=== PATIENT | female | born 1985 | race Caucasian/White ===

== ENCOUNTER 2018-03-20 00:04 | Inpatient (IN) | payer BC ==
[~2018-03-20] VITALS: Ht 162.6 cm; Wt 95.2 kg
[~2018-03-20 00:04] MED LIST: FLNCV PO; MTR600X PO
[2018-03-25 08:33] VITALS: Ht 162.6 cm; Wt 95.2 kg
--- NOTE | 2018-03-25 10:56 | History and Physical ---
History & Physical Date of Service Mar 25, 2018. Complaint Induction History of Present Illness Source: patient here for post dates induction. No problems. 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 Past Medical History None Past Surgical History None Social History Smoking Status: Former Smoker Allergies Coded Allergies: NO KNOWN DRUG ALLERGIES (Verified Allergy, Unknown, none, 03/25/18) Home Medications Scheduled Multivitamins (Flintstones Chewable *), 1 TAB PO QAM Review of Systems Constitutional: No fever, No chills, No sweats, No problem reported Eyes: No worsening of vision, No eye pain, No problem reported ENT: No problem reported Respiratory: No cough, No sputum, No wheezing, No problem reported Cardiovascular: No chest pain, No orthopnea, No edema, No palpitations, No problem reported Abdomen: No problem reported Musculoskeletal: No problem reported Genitourinary - Female: + , No problem reported Neurologic: No problem reported Psychiatric: No problem reported Endocrine: No problem reported Hematologic / Lymphatic: No problem reported Integumentary: No problem reported Allergic / Immunologic: No problem reported Physical Exam Cervix 1/60/-2 Monitoring External Monitor: Category1 Assessment and Plan (1) Post dates Plan for pitocin induction of labor
[2018-03-25] MEDS ORDERED: LACTATED RINGER'S 1000ML 500 ML IV PRN (11:26)
[2018-03-25] MEDS ORDERED: OXYTOCIN 30 UNITS/500ML NSS IV PRN ×2 (11:30→20:45)
[2018-03-25 11:51] LABS: HEMATOCRIT 37.7 % (37-47); HEMOGLOBIN 12.6 g/dL (12.0-16.0); MEAN CELL VOLUME 87.1 fL (80-100); MEAN CORPUSCULAR HEMOGLOBIN 29.1 pg (25-34); MEAN CORPUSCULAR HGB CONC 33.4 g/dl (32-36); MEAN PLATELET VOLUME 11.5 fL (7.4-10.4); PLATELET COUNT 143 K/uL (130-400); RED CELL DISTRIBUTION WIDTH CV 14.3 % (11.5-14.5); RED CELL DISTRIBUTION WIDTH SD 45.2 fL (36.4-46.3); WHITE BLOOD COUNT 8.81 K/uL (4.8-10.8)
[2018-03-25] MEDS: LACTATED RINGER'S 1000ML 1,000 ML IV SCH ×2 (11:52→19:38)
--- NOTE | 2018-03-25 20:40 | Procedure Note ---
Procedure Note Date of Service Mar 25, 2018. Procedure Note viable female Spontaneous delivery of intact placenta No lacerations needing repair No complications
[2018-03-25] MEDS ORDERED: ACETAMINOPHEN 325 MG TAB PO PRN (20:45)
[2018-03-25] MEDS ORDERED: SUPERCREAM 0.870 % 15GM JAR EXT PRN (20:45)
[2018-03-25] MEDS ORDERED: LANOLIN OINT EXT PRN (20:45)
[2018-03-25] MEDS ORDERED: OXYCODONE/ACETAMINOPHEN 5-325 TAB PO PRN (20:45)
[2018-03-25] MEDS ORDERED: BENZOCAINE 20% AER SPR 82.5 GM CAN EXT PRN (20:45)
[2018-03-25 23:10] VITALS: BP 130/79; PULSE 85; TEMP 36.3
[2018-03-25] MEDS: IBUPROFEN 600 MG TAB PO PRN (23:12)
[2018-03-26 03:25] VITALS: BP 103/63; PULSE 63; TEMP 36.6
[2018-03-26 07:09] LABS: HEMOGLOBIN 12.4 g/dL (12.0-16.0)
[2018-03-26] MEDS: DOCUSATE SODIUM 100 MG CAP PO SCH ×3 (07:56→19:32)
[2018-03-26] MEDS: IBUPROFEN 600 MG TAB PO PRN (07:58)
[2018-03-26 08:15] VITALS: BP 130/81; PULSE 67; TEMP 36.6
--- NOTE | 2018-03-26 08:25 | Progress Note ---
Subjective Mar 26, 2018. Subjective conversation w/ patient Ambulation: ambulating normally Voiding: no voiding problems Passing Gas: Yes Diet Tolerance: Regular Diet Lochia: Small Feeding Type: Breast Feeding Review of Systems Constitutional: + fever Objective Vital Signs Date Time Temp Pulse Resp B/P (MAP) Pulse Ox O2 Delivery O2 Flow Rate FiO2 03/26/18 03:25 36.6 63 18 103/63 (76) Room Air 03/25/18 23:10 Room Air 03/25/18 23:10 36.3 85 18 130/79 (96) Room Air Physical Exam General Appearance: WELL-APPEARING Abdomen: non tender Fundus: Firm, Non-Tender Extremities: no pedal edema, no calf tenderness Laboratory Results Last 24 Hours Test 03/25/18 11:37 03/26/18 06:52 White Blood Count 8.81 K/uL Red Blood Count 4.33 M/uL Hemoglobin 12.6 g/dL 12.4 g/dL Hematocrit 37.7 % 37.0 % Mean Corpuscular Volume 87.1 fL Mean Corpuscular Hemoglobin 29.1 pg Mean Corpuscular Hemoglobin Concent 33.4 g/dl RDW Standard Deviation 45.2 fL RDW Coefficient of Variation 14.3 % Platelet Count 143 K/uL Mean Platelet Volume 11.5 fL Assessment and Plan Post- Day#: 1
[2018-03-26 12:15] VITALS: BP 113/74; PULSE 61; TEMP 36.5
[2018-03-26 16:10] VITALS: BP 108/72; PULSE 60; TEMP 36.4
[2018-03-26 20:30] VITALS: BP 114/76; PULSE 79; TEMP 36.4; O2SAT 98
[2018-03-27 00:20] VITALS: BP 120/74; PULSE 67; TEMP 36.7; O2SAT 96
[2018-03-27] MEDS: DOCUSATE SODIUM 100 MG CAP PO SCH (07:48)
[2018-03-27 07:52] VITALS: BP 113/76; PULSE 66; TEMP 36.4
--- NOTE | 2018-03-27 08:33 | Progress Note ---
Subjective Mar 27, 2018. Subjective conversation w/ patient Ambulation: ambulating normally Voiding: no voiding problems Passing Gas: Yes Diet Tolerance: Regular Diet Lochia: Small Feeding Type: Breast Feeding Review of Systems Constitutional: + fever Objective Vital Signs Date Time Temp Pulse Resp B/P (MAP) Pulse Ox O2 Delivery O2 Flow Rate FiO2 03/27/18 07:52 36.4 66 20 113/76 (88) 03/27/18 00:20 36.7 67 16 120/74 (89) 96 Room Air 03/26/18 20:30 Room Air 03/26/18 20:30 36.4 79 16 114/76 (89) 98 Room Air 03/26/18 16:10 36.4 60 20 108/72 (84) 03/26/18 12:15 36.5 61 20 113/74 (87) Physical Exam General Appearance: WELL-APPEARING Abdomen: non tender Fundus: Firm, Non-Tender Extremities: no pedal edema, no calf tenderness Assessment and Plan Post- Day#: 2 Continue Routine Care: zoloft 50 mg x 60 one tablet daily
--- NOTE | 2018-03-27 08:35 | Discharge Instructions ---
Discharge Instructions Date of Service Mar 27, 2018. Admission Reason for Admission: Induction Discharge Discharge Diagnosis / Problem: term Discharge Goals Goal(s): Routine recovery after delivery Activity Recommendations Activity Limitations: as noted below ACTIVITY RECOMMENDATIONS: * Gradual return to full activity over the next 2-3 weeks. * No lifting - nothing heavier than baby over the next 2-3 weeks. * Do not engage in vigorous exercise, sexual activity or sports until cleared by your physician. * Do not drive or operate any motorized equipment until cleared by your physician. * You may shower/bathe daily. BREAST CARE: If you are not breast feeding: * Wear a supportive bra 24 hours a day for one to two weeks. * Avoid stimulating your breasts and nipples as much as possible during the first few weeks after delivery. * When taking a shower, have the warm water hit your back, not breasts. * When your breasts feel full, apply ice packs. Usually three to four times a day helps ease the discomfort. * Take a mild pain medication (Tylenol/Motrin) when you are uncomfortable. If breast feeding: * Use breast milk to lubricate nipples. Lansinoh cream may be used for sore nipples. You do not need to remove cream prior to breast feeding. If using a different brand of cream, check the label for directions regarding removal of cream prior to nursing. * Wear a supportive bra. * If having problems with breasts or breast feeding, call a specification consultant or your health care provider. EPISIOTOMY CARE: After delivery, if you have an episiotomy (stitches), the following steps will ease discomfort and aid healing. * For the first 24 hours after delivery, place ice packs next to your episiotomy to help reduce swelling. * After the first 24 hour-period, sitz baths, either portable or in the tub, are suggested. A shower with a shower arm sprayed over the episiotomy may be comforting. * Christina care should be done after each voiding and bowel movement. Squirt warm water from a plastic bottle over the perineum (region of the body between the anus and urinary opening) and pat dry. * Use Dermoplast to ease discomfort. Shake container. [place] directly over the episiotomy. * Place a Tucks on a clean sanitary pad next to your episiotomy. OVER THE COUNTER MEDICATION: * For discomfort or pain, you may use Acetaminophen (Tylenol), Ibuprofen (Advil ), or Naproxen (Aleve) following the package directions. * For constipation you may use Colace following the package directions. SPECIAL CARE INSTRUCTIONS: When you are discharged from the hospital, it is important for you to follow the instructions listed below: * During the first week at home, you should be able to care for yourself and your baby. In addition, the usual light household activities are encouraged. * Limit your activities to the way you feel. Do not try to clean the house or move furniture. Be sensible. * If you actively engage in sports and have done so up until the time of your delivery, you may resume these activities as soon as you feel able. This may take up to one month or even longer. Use good judgment. * Continue to take your vitamins for at least six weeks after the of your baby. * Your diet need not be limited unless you were on a special diet before your delivery. Breast-feeding mothers need around 2500 calories per day and at least 64-80 ounces of fluid per day (8 to 10 glasses). * You should eat foods from the four major food groups. Crash diets or fad diets are to be avoided. Eating lean meats, fresh fruits and vegetables, low-fat dairy products, high fiber foods and a regular exercise program, will help you get back to your pre- weight without putting your health at risk. * Constipation is sometimes a problem after delivery. Take a mild laxative as needed. If breast feeding, Milk of Magnesia is acceptable to use. You may use a suppository or Fleets enema if no episiotomy. * A daily shower or tub bath is suggested. Be sure to thoroughly and gently dry the perineum. * A bloody vaginal discharge will usually continue until around four weeks post . A small amount of bleeding may continue for as long as six weeks. Vaginal discharge changes from the bright red bleeding after delivery to pink then brownish and finally yellowish-pink before becoming white and disappearing. * Bleeding may increase with activity. Your first period may come in 4-8 weeks. If you are breast feeding, your period may be delayed even longer. * [place] (sex) can begin whenever both you and your partner feel comfortable and do not have any form of genital infection. It is recommended that you wait until after your return appointment and discuss with your physician. If you have questions, please talk to your health care practitioner. A condom should be used to prevent infection and . * Foreplay, gentle intercourse and lubrication is very important the first several times to prevent pain. A water-based lubricant such as K-Y jelly or Astroglide may be used. * Tampons may be used six weeks after delivery. * Douching should be avoided for 6 weeks after delivery. * If you have RH negative blood and your baby is RH positive, you will receive RHOGAM by injection prior to discharge. The nurse will give you a card to keep with you that has the date and place that you received RHOGAM after delivery. * During your care, you had a Rubella screen done to check for the presence of rubella antibodies in your blood. If your test was negative, you will receive a Rubella vaccine prior to discharge. This vaccine may cause a fever, soreness at the injection site and flu-like symptoms. If these symptoms persist, notify your health care practitioner. is not advised for three months after a Rubella vaccine. There is a higher chance of having a baby with defects if conceived within three months of getting the vaccine. * If you were discharged 24 hours from delivery or before 48 hours: Visiting nurses will come to your home 48 hours after discharge to assess you and your baby. The visiting nurse will meet with you while you are in the hospital to arrange a time and get directions to your home. * Verbalizes understanding of car seat law as reviewed with patient nursing. * Car Seat hand-out given and reviewed with patient by nursing. * Shaken baby information reviewed with patient by nursing. Call you doctor if: * Heavy bleeding (saturating several pads an hour) or passing clots the size of your fist. * A fever >101 degrees F (38.3 degrees C) on two occasions four hours apart and/or chills. * Unusual pain in the pelvic or vaginal areas. * "Baby Blues" lasting longer than two weeks. If you have any questions or concerns, call your health care practitioner at . FOLLOW-UP VISIT: * Please call the office at to schedule a 6 week examination. It is important you keep this appointment. * It is important for you to make arrangements for either yearly or twice yearly check-ups thereafter. . Current Hospital Diet ACTIVITY RECOMMENDATIONS: * Gradual return to full activity over the next 2-3 weeks. * No lifting - nothing heavier than baby over the next 2-3 weeks. * Do not engage in vigorous exercise, sexual activity or sports until cleared by your physician. * Do not drive or operate any motorized equipment until cleared by your physician. * You may shower/bathe daily. BREAST CARE: If you are not breast feeding: * Wear a supportive bra 24 hours a day for one to two weeks. * Avoid stimulating your breasts and nipples as much as possible during the first few weeks after delivery. * When taking a shower, have the warm water hit your back, not breasts. * When your breasts feel full, apply ice packs. Usually three to four times a day helps ease the discomfort. * Take a mild pain medication (Tylenol/Motrin) when you are uncomfortable. If breast feeding: * Use breast milk to lubricate nipples. Lansinoh cream may be used for sore nipples. You do not need to remove cream prior to breast feeding. If using a different brand of cream, check the label for directions regarding removal of cream prior to nursing. * Wear a supportive bra. * If having problems with breasts or breast feeding, call a specification consultant or your health care provider. EPISIOTOMY CARE: After delivery, if you have an episiotomy (stitches), the following steps will ease discomfort and aid healing. * For the first 24 hours after delivery, place ice packs next to your episiotomy to help reduce swelling. * After the first 24 hour-period, sitz baths, either portable or in the tub, are suggested. A shower with a shower arm sprayed over the episiotomy may be comforting. * Christina care should be done after each voiding and bowel movement. Squirt warm water from a plastic bottle over the perineum (region of the body between the anus and urinary opening) and pat dry. * Use Dermoplast to ease discomfort. Shake container. [place] directly over the episiotomy. * Place a Tucks on a clean sanitary pad next to your episiotomy. OVER THE COUNTER MEDICATION: * For discomfort or pain, you may use Acetaminophen (Tylenol), Ibuprofen (Advil ), or Naproxen (Aleve) following the package directions. * For constipation you may use Colace following the package directions. SPECIAL CARE INSTRUCTIONS: When you are discharged from the hospital, it is important for you to follow the instructions listed below: * During the first week at home, you should be able to care for yourself and your baby. In addition, the usual light household activities are encouraged. * Limit your activities to the way you feel. Do not try to clean the house or move furniture. Be sensible. * If you actively engage in sports and have done so up until the time of your delivery, you may resume these activities as soon as you feel able. This may take up to one month or even longer. Use good judgment. * Continue to take your vitamins for at least six weeks after the of your baby. * Your diet need not be limited unless you were on a special diet before your delivery. Breast-feeding mothers need around 2500 calories per day and at least 64-80 ounces of fluid per day (8 to 10 glasses). * You should eat foods from the four major food groups. Crash diets or fad diets are to be avoided. Eating lean meats, fresh fruits and vegetables, low-fat dairy products, high fiber foods and a regular exercise program, will help you get back to your pre- weight without putting your health at risk. * Constipation is sometimes a problem after delivery. Take a mild laxative as needed. If breast feeding, Milk of Magnesia is acceptable to use. You may use a suppository or Fleets enema if no episiotomy. * A daily shower or tub bath is suggested. Be sure to thoroughly and gently dry the perineum. * A bloody vaginal discharge will usually continue until around four weeks post . A small amount of bleeding may continue for as long as six weeks. Vaginal discharge changes from the bright red bleeding after delivery to pink then brownish and finally yellowish-pink before becoming white and disappearing. * Bleeding may increase with activity. Your first period may come in 4-8 weeks. If you are breast feeding, your period may be delayed even longer. * [place] (sex) can begin whenever both you and your partner feel comfortable and do not have any form of genital infection. It is recommended that you wait until after your return appointment and discuss with your physician. If you have questions, please talk to your health care practitioner. A condom should be used to prevent infection and . * Foreplay, gentle intercourse and lubrication is very important the first several times to prevent pain. A water-based lubricant such as K-Y jelly or Astroglide may be used. * Tampons may be used six weeks after delivery. * Douching should be avoided for 6 weeks after delivery. * If you have RH negative blood and your baby is RH positive, you will receive RHOGAM by injection prior to discharge. The nurse will give you a card to keep with you that has the date and place that you received RHOGAM after delivery. * During your care, you had a Rubella screen done to check for the presence of rubella antibodies in your blood. If your test was negative, you will receive a Rubella vaccine prior to discharge. This vaccine may cause a fever, soreness at the injection site and flu-like symptoms. If these symptoms persist, notify your health care practitioner. is not advised for three months after a Rubella vaccine. There is a higher chance of having a baby with defects if conceived within three months of getting the vaccine. * If you were discharged 24 hours from delivery or before 48 hours: Visiting nurses will come to your home 48 hours after discharge to assess you and your baby. The visiting nurse will meet with you while you are in the hospital to arrange a time and get directions to your home. * Verbalizes understanding of car seat law as reviewed with patient nursing. * Car Seat hand-out given and reviewed with patient by nursing. * Shaken baby information reviewed with patient by nursing. Call you doctor if: * Heavy bleeding (saturating several pads an hour) or passing clots the size of your fist. * A fever >101 degrees F (38.3 degrees C) on two occasions four hours apart and/or chills. * Unusual pain in the pelvic or vaginal areas. * "Baby Blues" lasting longer than two weeks. If you have any questions or concerns, call your health care practitioner at . FOLLOW-UP VISIT: * Please call the office at to schedule a 6 week examination. It is important you keep this appointment. * It is important for you to make arrangements for either yearly or twice yearly check-ups thereafter. Patient's current hospital diet: Regular Diet Discharge Diet Recommended Diet: Regular Diet Pending Studies Studies pending at discharge: no Medical Emergencies . Who to Call and When: Medical Emergencies: If at any time you feel your situation is an emergency, please call 911 immediately. . Non-Emergent Contact Non-Emergency issues call your: Retail Service Technician Call Non-Emergent contact if: temperature is above 100.5 . . "Provider Documentation" section prepared by Neville Matamoros. .
[2018-03-27 10:06] VITALS: BP_DIAS 76; PULSE 66; TEMP 36.4
== END 2018-03-27 11:21 | disposition home or self-care (01) | DRG 775 ==
LOC: C.LD 03-25 07:50 → C.OBG 03-25 23:15
PROVIDERS: ADMIT Obstetrics & Gynecology; ATTEND Obstetrics & Gynecology
PROC: 4A1HXCZ Monitoring of Products of Conception, Cardiac Rate, External Approach (ICD-10-PCS; principal; 2018-03-25)
PROC: 3E033VJ Introduction of Other Hormone into Peripheral Vein, Percutaneous Approach (ICD-10-PCS; principal; 2018-03-25)
PROC: 10E0XZZ Delivery of Products of Conception, External Approach (ICD-10-PCS; principal; 2018-03-25)
DX: O48.0 Post-term pregnancy (principal); Z3A.40 40 weeks gestation of pregnancy; Z37.0 Single live birth; Z87.891 Personal history of nicotine dependence

== ENCOUNTER 2024-08-15 10:23 | Inpatient (IN) ==
--- NOTE | 2024-08-15 10:41 | Emergency Department Note ---
Impression & Plan Wedge compression fracture of T12 vertebra, Fall ED Provider Note NAME: RASHMI LIEBERMAN AGE: 38 SEX: F : 1985 ARRIVES VIA: Walk-In INFORMANT: Patient ED PROVIDER(S): Higinio Rodriguez DO CHIEF COMPLAINT: Back pain HPI: Patient is a 38-year-old female who presents to the ER following a fall. Per who is present at bedside and provides additional history patient slipped on the ice and fell into her butt. She notes she did not hit her head. No head or neck pain. Pain is focal in her lower lumbar spine. No radiation into the legs. No weakness or numbness. No chest pain or shortness of breath. No other exacerbating or remitting factors. No blood thinners. ADDITIONAL HISTORY OBTAINED: Per HPI Chronic Medical/Social Conditions Affecting Care: Per HPI PAST MEDICAL HISTORY:See Below PAST SURGICAL HISTORY:See Below FAMILY HISTORY:See Below SOCIAL HISTORY:See Below HOME MEDICATIONS:See Below ALLERGIES:See Below VITALS:See Below PHYSICAL EXAMINATION: GENERAL: Sitting up in bed, alert, well appearing, well nourished, no distress, non-toxic EYE EXAM: normal conjunctiva. OROPHARYNX: no exudate, no erythema, lips, buccal mucosa, and tongue normal and mucous membranes are moist NECK: supple, no nuchal rigidity, no adenopathy, non-tender LUNGS: Clear to auscultation. Normal chest wall mechanics HEART: no murmurs, S1 normal and S2 normal ABDOMEN: abdomen soft, non-tender, normo-active bowel sounds, no masses, no rebound or guarding. BACK: Back is symmetrical on inspection and there is no deformity, midline tenderness in the lower lumbar region UPPER EXTREMITIES: upper extremities are grossly normal. LOWER EXTREMITIES: Flexion and extension of the hips, knees, ankles, and EHL 5/5 bilaterally. Gross sensation is intact. DPs are 2/4 bilateral. [Patellar and Achilles reflexes are 2/4 bilateral] NEURO EXAM: Normal sensorium, cranial nerves II-XII grossly intact, normal speech, no gross weakness of arms, no gross weakness of legs. MEDICAL DECISION MAKING: Patient is a 38-year-old female who presents ER for the above-stated complaint. IV was established and blood work was obtained. Labs show no significant leukocytosis or anemia. BMP with LFTs bilirubin was unremarkable. X-ray of the thoracic and CT of the lumbar spine shows fracture at T12 with 4 mm of retropulsion. She currently neurologically intact. Significant abdominal pain with any movement. She was given IV morphine x 2. Discussed with orthospine she will need to TLSO brace. Discussed case with the hospitalist for further evaluation management treatment. Consults/Care Managements Discussions: Per MDM Triage Nursing notes reviewed. Limited review of prior medical records performed Vital Signs: reviewed and remarkable for no significant abnormalities Differential diagnosis: Musculoskeletal, disc herniation, fracture, metastatic disease, cord compression, discitis, sciatica, cauda equina, infection, aortic disease, renal colic, gastrointestinal, as well as other pathologies. ER treatment provided: See below Diagnostics interpreted by me include EKG and cardiac monitoring as listed below: -Cardiac Monitoring: An order was placed for continuous cardiac monitoring. The monitor shows a rate of 70 with sinus rhythm. -ECG: None -Laboratory studies:Interpreted by me as stated above in MDM and shown below. Imaging studies: Xrays: As interpreted by me: X-rays of the thoracic spine showed T12 fracture CTs show: CT of the lumbar spine shows a T12 fracture with retropulsion of 4 mm Procedures: None Critical Care: None Past Med/Surg History Problem List (Updated 08/15/24 @ 13:50 by Higinio Rodriguez DO) Fall (Acute) Wedge compression fracture of T12 vertebra (Acute) Medical History (Updated 08/15/24 @ 13:50 by Higinio Rodriguez DO) No pertinent past medical history Surgical History (Updated 08/15/24 @ 12:17 by Libby Gonzalez PA-C) No pertinent past surgical history Social History (Updated 08/15/24 @ 12:18 by Libby Gonzalez PA-C) Smoking Status: Current every day smoker Tobacco Type: Cigarettes Hx Alcohol Use: No Hx Substance Use: No Current Living Situation: Family Feels Safe at Home: Yes Allergies Allergies Allergy/AdvReac Type Severity Reaction Status Date / Time No Known Drug Allergies Allergy Unknown none Verified 03/25/18 08:32 Home Meds Home Medications Medication Instructions Recorded Confirmed Multi Vitamin 1 tab PO QAM ##0 10/22/09 08/15/24 Results & Data (ED) Vital Signs Vital Signs - 24 hr 08/15/24 10:31 08/15/24 11:33 08/15/24 11:38 Temperature 36.3 C L Temperature Source Temporal Artery Scan Pulse Rate 68 72 70 Pulse Rate from SpO2 Sensor Respiratory Rate 20 Respiratory Effort / Characteristics Non-Labored Spontaneous Respiratory Depth Normal Respiratory Pattern Regular Blood Pressure 110/72 Blood Pressure Mean 84 Pulse Oximetry 100 97 Oxygen Delivery Method Room Air Room Air Sepsis Recent Fever Within 48 Hours No Sepsis New/Unexplained Change in Mental Status N/A Sepsis Action Taken by Nursing No Action Required 08/15/24 11:42 08/15/24 11:57 08/15/24 12:00 Temperature Temperature Source Pulse Rate 67 72 Pulse Rate from SpO2 Sensor 68 72 Respiratory Rate 16 12 Respiratory Effort / Characteristics Respiratory Depth Respiratory Pattern Blood Pressure 106/75 Blood Pressure Mean 86 Pulse Oximetry 97 97 Oxygen Delivery Method Sepsis Recent Fever Within 48 Hours Sepsis New/Unexplained Change in Mental Status Sepsis Action Taken by Nursing 08/15/24 12:24 08/15/24 12:42 Temperature Temperature Source Pulse Rate 71 76 Pulse Rate from SpO2 Sensor 71 72 Respiratory Rate 14 16 Respiratory Effort / Characteristics Respiratory Depth Respiratory Pattern Blood Pressure Blood Pressure Mean Pulse Oximetry 100 97 Oxygen Delivery Method Sepsis Recent Fever Within 48 Hours Sepsis New/Unexplained Change in Mental Status Sepsis Action Taken by Nursing Laboratory Data 08/15/24 10:45 08/15/24 10:45 Lab Results 08/15/24 Range/Units 10:45 WBC 8.16 (4.8-10.8) K/ul RBC 4.98 (4.20-5.40) M/uL Hgb 14.9 (12.0-16.0) g/dl Hct 43.1 (37.0-47.0) % MCV 86.5 (80.0-100.0) fL MCH 29.9 (25.0-34.0) pg MCHC 34.6 (32.0-36.0) g/dL RDW Std Deviation 38.3 (36.4-46.3) fL RDW Coeff of Shi 12.0 (11.5-14.5) % Plt Count 270 (130-400) K/uL MPV 10.3 (9.4-12.4) fL Immature Gran % (Auto) 1.0 % Neut % (Auto) 64.2 % Lymph % (Auto) 26.1 % [place] % (Auto) 6.7 % Eos % (Auto) 1.5 % Baso % (Auto) 0.5 % Neut # (Auto) 5.24 (1.40-6.50) K/uL Lymph # (Auto) 2.13 (1.20-3.40) K/uL [place] # (Auto) 0.55 (0.11-0.59) K/uL Eos # (Auto) 0.12 (0.00-0.50) K/uL Baso # (Auto) 0.04 (0.00-0.20) K/uL Immature Gran # (Auto) 0.08 (0.01-0.20) K/uL Sodium 135 L (136-145) mmol/L Potassium 3.7 (3.5-5.1) mmol/L Chloride 101 (98-107) mmol/L Carbon Dioxide 23 (21-32) mmol/L Anion Gap 11 (3-11) BUN 11 (6-23) mg/dl Creatinine 0.72 (0.6-1.2) mg/dl Est Cr Clr Drug Dosing Not Reportable eGFR 110.37 BUN/Creatinine Ratio 15.3 (10-20) Glucose 130 H (70-99(Fasting)) mg/dl Calcium 9.7 (8.6-10.3) mg/dl Total Bilirubin 0.5 (0.2-1.0) mg/dl AST 35 (13-39) U/L ALT 46 (7-52) U/L Alkaline Phosphatase 46 (34-104) U/L Total Protein 8.1 (6.0-8.3) gm/dl Albumin 4.9 (3.4-5.0) gm/dl Globulin 3.2 (2.5-4.0) gm/dl Albumin/Globulin Ratio 1.5 (0.9-2) Administered Medications Acetaminophen (Ofirmev) 1,000 mg in 100 mls @ 400 mls/hr IV Q8H ESTER Stop: 08/18/24 12:14 Last Infusion: 08/15/24 13:33 Dose: Infused Documented By: Admin: 08/15/24 12:15 Dose: 400 mls/hr Documented By: BELINDA Lidocaine (Lidocaine 5% 1 Patch) 1 patch TD QAM ESTER Stop: 09/14/24 12:14 Last Admin: 08/15/24 12:16 Dose: 1 patch Documented By: BELINDA Discontinued Medications Morphine Sulfate (Morphine Sulfate 4 Mg/Ml 1 Ml Carp\Vial) 4 mg IV NOW STA Stop: 08/15/24 10:39 Last Admin: 08/15/24 10:58 Dose: 4 mg Documented By: GALOK Morphine Sulfate (Morphine Sulfate 4 Mg/Ml 1 Ml Carp\Vial) 4 mg IV NOW STA Stop: 08/15/24 11:36 Last Admin: 08/15/24 11:48 Dose: 4 mg Documented By: BELINDA Ondansetron HCl (Ondansetron Inj 2 Mg/Ml 2 Ml Vial) 4 mg IV NOW STA Stop: 08/15/24 10:39 Last Admin: 08/15/24 10:58 Dose: 4 mg Documented By: BELINDA Imaging Data Radiologist's Impression: Lumbar Spine CT 08/15/24 10:38 CT lumbar spine wo con CLINICAL HISTORY: lower back pain TECHNIQUE: Multidetector row helical CT of the lumbar spine was performed without administration of intravenous contrast. Coronal and sagittal reformations were obtained. Automated dose lowering techniques and/or adjustment according to patient size were utilized for this exam. CT DOSE: 1251.86 mGy.cm Comparison: None available at the time of this dictation. FINDINGS: For counting purposes, the last complete intervertebral disc space is considered L5-S1. There is an acute fracture of the superior endplate of T12 with approximately 50% loss of height and 4 mm of retropulsion. Vertebral body heights and disk spaces are well maintained. Vertebral body alignment is within normal limits. Surrounding soft tissues are unremarkable. IMPRESSION: Acute anterior wedge fracture of the superior endplate of T12 with 4 mm of retropulsion. ACT 112: Negative or not required by law. Electronically signed by: Farshad Wright M.D. 08/15/2024 11:25 AM Thoracic Spine X-Ray 08/15/24 10:38 XR thoracic spine 3V routine CLINICAL HISTORY: back pain TECHNIQUE: 3 views of the thoracic spine were obtained. Comparison: None available at the time of this dictation. FINDINGS: Acute appearing anterior wedge fracture of T12. Vertebral body heights and disc spaces are well maintained. Alignment appears unremarkable. Prevertebral soft tissues are within normal limits. IMPRESSION: Compression fracture of T12 is better seen on CT lumbar spine. ACT 112: Negative or not required by law. Electronically signed by: Farshad Wright M.D. 08/15/2024 11:32 AM Discharge Plan Visit Data Chief Complaint: Back Injury/Pain Stated Complaint: FELL ON ICE, LANDED ON BACK/BACK PAIN ED Provider: Higinio Rodriguez Discharge Problem: Wedge compression fracture of T12 vertebra, Fall Forms Stand Alone Forms: [employer] Prescriptions Prescriptions: No Action Multi Vitamin 1 TAB tablet 1 tab PO QAM Qty: 0 Referrals Referrals: Parul Davenport PA-C [Primary Care Provider] - Discharge Problem: Wedge compression fracture of T12 vertebra Qualifiers: Encounter type: initial encounter Fracture type: closed Qualified Code(s): S 22.080A - Wedge compression fracture of T11-T12 vertebra, initial encounter for closed fracture Fall Qualifiers: Encounter type: initial encounter Qualified Code(s): W19.XXXA - Unspecified fall, initial encounter
[2024-08-15 10:57] LABS: Basophils # (auto) 0.04 K/uL (0.00-0.20); Basophils % (auto) 0.5 %; Eosinophils # (auto) 0.12 K/uL (0.00-0.50); Eosinophils % (auto) 1.5 %; Hematocrit (blood only) 43.1 % (37.0-47.0); Hemoglobin 14.9 g/dl (12.0-16.0); Immature Granulocytes # (auto) 0.08 K/uL (0.01-0.20); Lymphocytes # (auto) 2.13 K/uL (1.20-3.40); Lymphocytes % (auto) 26.1 %; Mean Corpuscular Hemoglobin 29.9 pg (25.0-34.0); Mean Corpuscular Hgb Conc 34.6 g/dL (32.0-36.0); Mean Corpuscular Volume 86.5 fL (80.0-100.0); Mean Platelet Volume 10.3 fL (9.4-12.4); Monocytes # (auto) 0.55 K/uL (0.11-0.59); Monocytes % (auto) 6.7 %; Neutrophils # (auto) 5.24 K/uL (1.40-6.50); Neutrophils % (auto) 64.2 %; Platelet Count 270 K/uL (130-400); RDW Standard Deviation 38.3 fL (36.4-46.3); Red Blood Count 4.98 M/uL (4.20-5.40); White Blood Count 8.16 K/ul (4.8-10.8)
[2024-08-15] MEDS: ONDANSETRON INJ 2 MG/ML 2 ML VIAL IV STA (10:58)
[2024-08-15] MEDS: MoRPHine SULFATE 4 MG/ML 1 ML CARP\\VIAL IV STA ×2 (10:58→11:48)
[2024-08-15 11:13] LABS: Alanine Aminotransferase 46 U/L (7-52); Albumin Globulin Ratio 1.5 (0.9-2); Albumin Level 4.9 gm/dl (3.4-5.0); Alkaline Phosphatase 46 U/L (34-104); Anion Gap 11 (3-11); Aspartate Aminotransferase 35 U/L (13-39); BUN Creatinine Ratio 15.3 (10-20); Bilirubin,Total 0.5 mg/dl (0.2-1.0); Blood Urea Nitrogen 11 mg/dl (6-23); Calcium 9.7 mg/dl (8.6-10.3); Carbon Dioxide 23 mmol/L (21-32); Chloride 101 mmol/L (98-107); Globulin 3.2 gm/dl (2.5-4.0); Glucose 130 mg/dl (70-99(Fasting)); Potassium 3.7 mmol/L (3.5-5.1); Sodium 135 mmol/L (136-145); Total Protein 8.1 gm/dl (6.0-8.3)
--- NOTE | 2024-08-15 11:26 | CT Scan Report ---
CT lumbar spine wo con CLINICAL HISTORY: lower back pain TECHNIQUE: Multidetector row helical CT of the lumbar spine was performed without administration of i ntravenous contrast. Coronal and sagittal reformations were obtained. Automated dose lowering techniq ues and/or adjustment according to patient size were utilized for this exam. CT DOSE: 1251.86 mGy.cm Comparison: None available at the time of this dictation. FINDINGS: For counting purposes, the last complete intervertebral disc space is considered L5-S1. There is an acute fracture of the superior endplate of T12 with approximately 50% loss of height and 4 mm of retropulsion. Vertebral body heights and disk spaces are well maintained. Vertebral body alig nment is within normal limits. Surrounding soft tissues are unremarkable. IMPRESSION: Acute anterior wedge fracture of the superior endplate of T12 with 4 mm of retropulsion. ACT 112: Negative or not required by law. Electronically signed by: Farshad Wright M.D. 08/15/2024 11:25 AM
--- NOTE | 2024-08-15 11:33 | XRay Report ---
XR thoracic spine 3V routine CLINICAL HISTORY: back pain TECHNIQUE: 3 views of the thoracic spine were obtained. Comparison: None available at the time of this dictation. FINDINGS: Acute appearing anterior wedge fracture of T12. Vertebral body heights and disc spaces are well maint ained. Alignment appears unremarkable. Prevertebral soft tissues are within normal limits. IMPRESSION: Compression fracture of T12 is better seen on CT lumbar spine. ACT 112: Negative or not required by law. Electronically signed by: Farshad Wright M.D. 08/15/2024 11:32 AM
--- NOTE | 2024-08-15 12:11 | History & Physical Report ---
Date of Service August 15, 2024 Assessment & Plan (1) Wedge compression fracture of T12 vertebra: Plan: This is a 38 y/o female with no significant past medical history and a LMP of today who presents to the ED with acute back pain after a fall this morning. W ork-up in the ED revealed an acute anterior wedge fracture of T12. Pt is having significant pain requiring IV narcotics - has received IV morphine with transient relief but now pain is increasing again. - Admit to med surg - Ortho spine evaluation - will pt NPO pending spine surgery evaluation - Scheduled acetaminophen, lidocaine patch - IV morphine for severe pain, oral oxycodone for moderate pain - Check vitamin D level - AM labs - CBC, BMP (2) Fall: Plan Pt seen and reviewed with collaborating physician, Dr. Moe. Plan of care discussed and as outlined above. Code status: full code DVT prophylaxis: SCDs Eventual PT/OT once seen by spine surgery Micheal Gonzalez PA-C History of Present Illness Chief Complaint: fall, back pain Primary Care Provider: Parul Davenport PA-C This is a 38 y/o female with no significant past medical history and a LMP of today who presents to the ED with acute back pain after a fall this morning. Pt was trying to get a gift from the car when she slipped on the snow and fell landing on her buttocks. She did not hit her head or have any loss of consciousness. She has had significant lower back pain since the fall. She has received morphine in the ED with transient relief. She denies numbness, tingling, LE weakness, bowel or bladder incontinence. She denies prior history of similar injury. She has not had surgery previously. Denies chest pain, dyspnea, fevers, chills. Allergies Allergy/AdvReac Type Severity Reaction Status Date / Time No Known Drug Allergies Allergy Unknown none Verified 03/25/18 08:32 Home Medications Medication Instructions Recorded Confirmed Type Multi Vitamin 1 tab PO QAM ##0 10/22/09 08/15/24 History Past Med/Surg History Problem List (Updated 08/15/24 @ 12:27 by Libby Gonzalez PA-C) Fall Wedge compression fracture of T12 vertebra Medical History (Updated 08/15/24 @ 12:27 by Libby Gonzalez PA-C) No pertinent past medical history Surgical History (Updated 08/15/24 @ 12:17 by Libby Gonzalez PA-C) No pertinent past surgical history Social History (Updated 08/15/24 @ 12:18 by Libby Gonzalez PA-C) Smoking Status: Current every day smoker Tobacco Type: Cigarettes Hx Alcohol Use: No Hx Substance Use: No Current Living Situation: Family Feels Safe at Home: Yes Review of Systems Review of Systems: All systems reviewed & are unremarkable except as noted in Subjective Physical Exam Physical Exam: Please see physician note for details of the physical exam. Results & Data Results & Data Vital Signs (Past 12 Hours) Vital Signs Temp Pulse Resp BP Pulse Ox O2 Del Method 08/15/24 11:42 67 16 97 08/15/24 11:38 70 08/15/24 11:33 72 97 Room Air 08/15/24 10:31 36.3 C L 68 20 110/72 100 Room Air Laboratory Results Lab Results 08/15/24 Range/Units 10:45 WBC 8.16 (4.8-10.8) K/ul RBC 4.98 (4.20-5.40) M/uL Hgb 14.9 (12.0-16.0) g/dl Hct 43.1 (37.0-47.0) % MCV 86.5 (80.0-100.0) fL MCH 29.9 (25.0-34.0) pg MCHC 34.6 (32.0-36.0) g/dL RDW Std Deviation 38.3 (36.4-46.3) fL RDW Coeff of Shi 12.0 (11.5-14.5) % Plt Count 270 (130-400) K/uL MPV 10.3 (9.4-12.4) fL Immature Gran % (Auto) 1.0 % Neut % (Auto) 64.2 % Lymph % (Auto) 26.1 % [place] % (Auto) 6.7 % Eos % (Auto) 1.5 % Baso % (Auto) 0.5 % Neut # (Auto) 5.24 (1.40-6.50) K/uL Lymph # (Auto) 2.13 (1.20-3.40) K/uL [place] # (Auto) 0.55 (0.11-0.59) K/uL Eos # (Auto) 0.12 (0.00-0.50) K/uL Baso # (Auto) 0.04 (0.00-0.20) K/uL Immature Gran # (Auto) 0.08 (0.01-0.20) K/uL Sodium 135 L (136-145) mmol/L Potassium 3.7 (3.5-5.1) mmol/L Chloride 101 (98-107) mmol/L Carbon Dioxide 23 (21-32) mmol/L Anion Gap 11 (3-11) BUN 11 (6-23) mg/dl Creatinine 0.72 (0.6-1.2) mg/dl Est Cr Clr Drug Dosing Not Reportable eGFR 110.37 BUN/Creatinine Ratio 15.3 (10-20) Glucose 130 H (70-99(Fasting)) mg/dl Calcium 9.7 (8.6-10.3) mg/dl Total Bilirubin 0.5 (0.2-1.0) mg/dl AST 35 (13-39) U/L ALT 46 (7-52) U/L Alkaline Phosphatase 46 (34-104) U/L Total Protein 8.1 (6.0-8.3) gm/dl Albumin 4.9 (3.4-5.0) gm/dl Globulin 3.2 (2.5-4.0) gm/dl Albumin/Globulin Ratio 1.5 (0.9-2) Diagnostic Findings Lumbar Spine CT 08/15/24 10:38 CT lumbar spine wo con CLINICAL HISTORY: lower back pain TECHNIQUE: Multidetector row helical CT of the lumbar spine was performed without administration of intravenous contrast. Coronal and sagittal reformations were obtained. Automated dose lowering techniques and/or adjustment according to patient size were utilized for this exam. CT DOSE: 1251.86 mGy.cm Comparison: None available at the time of this dictation. FINDINGS: For counting purposes, the last complete intervertebral disc space is considered L5-S1. There is an acute fracture of the superior endplate of T12 with approximately 50% loss of height and 4 mm of retropulsion. Vertebral body heights and disk spaces are well maintained. Vertebral body alignment is within normal limits. Surrounding soft tissues are unremarkable. IMPRESSION: Acute anterior wedge fracture of the superior endplate of T12 with 4 mm of retropulsion. ACT 112: Negative or not required by law. Electronically signed by: Farshad Wright M.D. 08/15/2024 11:25 AM Thoracic Spine X-Ray 08/15/24 10:38 XR thoracic spine 3V routine CLINICAL HISTORY: back pain TECHNIQUE: 3 views of the thoracic spine were obtained. Comparison: None available at the time of this dictation. FINDINGS: Acute appearing anterior wedge fracture of T12. Vertebral body heights and disc spaces are well maintained. Alignment appears unremarkable. Prevertebral soft tissues are within normal limits. IMPRESSION: Compression fracture of T12 is better seen on CT lumbar spine. ACT 112: Negative or not required by law. Electronically signed by: Farshad Wright M.D. 08/15/2024 11:32 AM Medications Administered Discontinued Medications Morphine Sulfate (Morphine Sulfate 4 Mg/Ml 1 Ml Carp\Vial) 4 mg IV NOW STA Stop: 08/15/24 10:39 Last Admin: 08/15/24 10:58 Dose: 4 mg Documented By: BELINDA Morphine Sulfate (Morphine Sulfate 4 Mg/Ml 1 Ml Carp\Vial) 4 mg IV NOW STA Stop: 08/15/24 11:36 Last Admin: 08/15/24 11:48 Dose: 4 mg Documented By: BELINDA Ondansetron HCl (Ondansetron Inj 2 Mg/Ml 2 Ml Vial) 4 mg IV NOW STA Stop: 08/15/24 10:39 Last Admin: 08/15/24 10:58 Dose: 4 mg Documented By: BELINDA Supervising Physician Co-Signing Physician Notes Patient seen and examined Slipped and fell on ice this morning. [place] there was a crack and has been having severe back pain since. No head trauma or LOC No other complaints on ROS On exam General: In painful distress Eyes: PERRL, conjunctivae normal, not pale, anicteric sclerae, EOM intact bilaterally ENMT: External ear and nose normal, oropharynx normal Neck: Normal visual inspection Respiratory: Normal respiratory effort, no respiratory distress, lungs clear to auscultation, no crackles and no wheezes Cardiovascular: RRR S1 S2 Gastrointestinal (Abdomen): Abdomen is not distended, soft, non-tender to palpation, no guarding, no palpable hepatosplenomegaly, normal bowel sounds Musculoskeletal: Tenderness over midback Neurologic: No focal weakness, sensation grossly intact Psychiatric: Alert and oriented x 3 Labs are unremarkable Lumbar CT showed acute anterior wedge fracture of T12 with 4mm retropulsion Fall Acute T12 fracture Optimize pain control IV morphine for severe pain, po oxycodone for mild and moderate pain Scheduled tylenol Keep NPO for now until Ortho spine eval Check Vit D level Will get PT/OT later I spent a total of 45 minutes coordinating, documenting and providing care for this patient excluding time spent in performance of separately billed services (1) Wedge compression fracture of T12 vertebra Encounter type: initial encounter Fracture type: closed Qualified Code(s): S22.080A - Wedge compression fracture of T11-T12 vertebra, initial encounter for closed fracture (2) Fall Encounter type: initial encounter Qualified Code(s): W19.XXXA - Unspecified fall, initial encounter
[2024-08-15] MEDS: ACETAMINOPHEN 1,000 MG/100 ML VIAL IV SCH (12:15)
[2024-08-15] MEDS: LIDOCAINE 5% 1 PATCH TD SCH (12:16)
[2024-08-15] MEDS: oxyCODONE HCL IR 5 MG TAB (IMMEDIATE RELEASE) PO PRN (15:41)
[2024-08-15] MEDS: MoRPHine SULFATE 4 MG/ML 1 ML CARP\\VIAL IV PRN (19:29)
[2024-08-16 06:06] LABS: Basophils # (auto) 0.04 K/uL (0.00-0.20); Basophils % (auto) 0.7 %; Eosinophils # (auto) 0.11 K/uL (0.00-0.50); Eosinophils % (auto) 1.9 %; Hematocrit (blood only) 37.9 % (37.0-47.0); Hemoglobin 12.8 g/dl (12.0-16.0); Immature Granulocytes # (auto) 0.02 K/uL (0.01-0.20); Immature Granulocytes % (auto) 0.3 %; Lymphocytes # (auto) 1.24 K/uL (1.20-3.40); Lymphocytes % (auto) 21.7 %; Mean Corpuscular Hgb Conc 33.8 g/dL (32.0-36.0); Mean Platelet Volume 10.6 fL (9.4-12.4); Monocytes # (auto) 0.45 K/uL (0.11-0.59); Monocytes % (auto) 7.9 %; Neutrophils # (auto) 3.86 K/uL (1.40-6.50); Neutrophils % (auto) 67.5 %; Platelet Count 200 K/uL (130-400); RDW Coefficient of Variation 12.1 % (11.5-14.5); RDW Standard Deviation 39.3 fL (36.4-46.3); Red Blood Count 4.26 M/uL (4.20-5.40); White Blood Count 5.72 K/ul (4.8-10.8)
[2024-08-16 06:19] LABS: BUN Creatinine Ratio 19.1 (10-20); Calcium 8.7 mg/dl (8.6-10.3); Creatinine Clr Calc Pharmacy 120.8 ml/min; Potassium 4.2 mmol/L (3.5-5.1)
[2024-08-16] MEDS ORDERED: oxyCODONE HCL IR 5 MG TAB (IMMEDIATE RELEASE) PO PRN ×2 (09:11→10:38)
[2024-08-16] MEDS: DICLOFENAC SODIUM 75 MG TABCR PO SCH (09:52)
[2024-08-16] MEDS: ACETAMINOPHEN 500 MG TAB PO SCH (09:52)
[2024-08-16] MEDS: MULTIVITAMIN TAB PO SCH (09:53)
--- NOTE | 2024-08-16 10:43 | Hospitalist Progress Note ---
Date of Service August 16, 2024 Assessment & Plan (1) Wedge compression fracture of T12 vertebra: (2) Fall: Plan Patient with acute pain secondary to T12 compression fracture. Schedule Tylenol and Voltaren to manage pain Continue Lidoderm patch Oxycodone and Flexeril as needed for pain and spasms goal is to manage with oral meds Orthopedics recommending brace, anticipate will be able to get that tomorrow. Anticipate discharge home tomorrow if pain is controlled and brace obtained Therapies Admission and Anticipated Discharge Date Admission Date: August 15, 2024 Subjective Patient reports that her pain is improved when she is at rest. Fair amount of pain whenever she moves and tries to get up. Medicines definitely helps some. Physical Exam Physical Exam: Constitutional: Alert HEENT: Mucous membranes moist. Lungs: Clear to auscultation, decreased, no wheezes rales or rhonchi CV: S1-S2, regular Abdomen: Soft, nontender, nondistended Extremities: No significant edema Musculoskeletal: Paravertebral muscle tenderness and spasms mid/lower thoracic area with some ropiness and bogginess Neuro: No focal deficits Psych: Cooperative, normal mood Results & Data Results & Data Vital Signs (Past 12 Hours) Vital Signs Temp Pulse Resp BP Pulse Ox O2 Del Method 08/16/24 07:00 36.8 C 65 16 99/64 L 96 Room Air 08/16/24 02:16 36.6 C 66 14 104/71 97 Room Air Diagnostic Findings CBC, BMP reviewed, stable (1) Wedge compression fracture of T12 vertebra Encounter type: initial encounter Fracture type: closed Qualified Code(s): S22.080A - Wedge compression fracture of T11-T12 vertebra, initial encounter for closed fracture (2) Fall Encounter type: initial encounter Qualified Code(s): W19.XXXA - Unspecified fall, initial encounter
[2024-08-16] MEDS ORDERED: bisacodyL 5 MG TABEC PO PRN (10:53)
--- NOTE | 2024-08-16 10:53 | Orthopedic Consultation ---
Date of Consultation August 16, 2024 Assessment & Plan (1) Wedge compression fracture of T12 vertebra: Assessment T12 compression fracture. Plan at this time we will provide the patient with a TLSO brace. Hopefully this will be fitted tomorrow. If she is able to tolerate the brace and is at providing adequate stability and pain control she would be reasonable to discharge home tomorrow. She should lift no more than 5 pounds. She may ambulate today without a brace about the room. Will advance her bowel regiment. History of Present Illness Reason for Consultation: T12 compression fracture Attending Physician: Larry Blum DO History of Present Illness This is a 38-year-old female presents yesterday after a fall at home. She has been diagnosed with a T12 compression fracture. She states that she has been able to get out of bed to the bathroom. She is obviously uncomfortable. She denies any numbness or tingling in the lower extremities or leg weakness. She is relatively comfortable at rest. Allergies Allergy/AdvReac Type Severity Reaction Status Date / Time No Known Drug Allergies Allergy Unknown none Verified 03/25/18 08:32 Home Medications Medication Instructions Recorded Confirmed Type Multi Vitamin 1 tab PO QAM ##0 10/22/09 08/15/24 History Patient History Medical History (Updated 08/15/24 @ 13:50 by Higinio Rodriguez DO) No pertinent past medical history Surgical History (Updated 08/15/24 @ 12:17 by Libby Gonzalez PA-C) No pertinent past surgical history Social History (Updated 08/15/24 @ 12:18 by Libby Gonzalez PA-C) Smoking Status: Current every day smoker Tobacco Type: Cigarettes Second Hand Exposure: No; Do You Dip or Chew Tobacco: No; Tobacco Cessation Education Requested by Patient: No Hx Alcohol Use: Yes Hx Substance Use: No Preferred Language: Estonian Communication Ability: Effective 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 She is sitting up. She is constricted testing lower extremities. Sensory intact. Results & Data Vital Signs (Past 12 Hours) Vital Signs Temp Pulse Resp BP Pulse Ox O2 Del Method 08/16/24 07:00 36.8 C 65 16 99/64 L 96 Room Air 08/16/24 02:16 36.6 C 66 14 104/71 97 Room Air (1) Wedge compression fracture of T12 vertebra Encounter type: initial encounter Fracture type: closed Qualified Code(s): S22.080A - Wedge compression fracture of T11-T12 vertebra, initial encounter for closed fracture
[2024-08-16] MEDS: CYCLOBENZAPRINE HCL 10 MG TAB PO PRN (12:17)
[2024-08-16] MEDS: DOCUSATE SODIUM 100 MG CAP PO SCH (21:08)
--- NOTE | 2024-08-17 09:56 | Orthopedic Progress Note ---
Date of Service August 17, 2024 Assessment & Plan (1) Wedge compression fracture of T12 vertebra: Plan: This time we are waiting for her TLSO to be placed. Once this is been placed and she is up and ambulating. She is stable for discharge home per orthopedics. Admission and Anticipated Discharge Date Admission Date: August 15, 2024 Subjective Patient is in bed but comfortable. Still awaiting brace placement. Physical Exam Physical Exam: Patient is neurologically intact. She is comfortable at rest. Results & Data Vital Signs (Past 12 Hours) Vital Signs Temp Pulse Resp BP Pulse Ox O2 Del Method 08/17/24 07:04 36.8 C 72 16 106/73 97 Room Air (1) Wedge compression fracture of T12 vertebra Encounter type: initial encounter Fracture type: closed Qualified Code(s): S22.080A - Wedge compression fracture of T11-T12 vertebra, initial encounter for closed fracture
--- NOTE | 2024-08-17 10:12 | Discharge Summary ---
Discharge Summary Date of Service August 17, 2024 Principal Dx & Hospital Course #1 = Principal Diagnosis (1) Wedge compression fracture of T12 vertebra: (2) Fall: Plan Patient 38-year-old female who presented to the emergency room after slipping and falling on the ice. Imaging revealed a T12 compression fracture. Patient was admitted to the hospital for pain control. Her pain was well-managed with scheduled Tylenol, Voltaren and as needed Flexeril and oxycodone. Patient was also given a trial of Lidoderm patch. She felt that this really did not offer much relief to her. Orthopedics spine surgery was consulted. They recommended a external brace but no immediate surgical intervention. On the day of discharge patient's pain was well-controlled. Needing minimal to no oral narcotic medications. She be fitted for a brace and discharged home to follow- up with outpatient PCP and orthopedic spine. Notes For Next Care Provider Medication Changes From Visit Flexeril, oxycodone, Tylenol, diclofenac added for pain control associated with your T12 compression fracture Admission HPI Per Admitting Provider This is a 38 y/o female with no significant past medical history and a LMP of today who presents to the ED with acute back pain after a fall this morning. Pt was trying to get a gift from the car when she slipped on the snow and fell landing on her buttocks. She did not hit her head or have any loss of consciousness. She has had significant lower back pain since the fall. She has received morphine in the ED with transient relief. She denies numbness, tingling, LE weakness, bowel or bladder incontinence. She denies prior history of similar injury. She has not had surgery previously. Denies chest pain, dyspnea, fevers, chills. Admission Exam Per Admitting Provider See H&P Discharge Exam Constitutional: Alert, no acute distress Extremities: No significant edema Neuro: No focal deficits Musculoskeletal: Mild to moderate tenderness palpation paravertebral musculature of the thoracolumbar spine Psych: Cooperative, normal mood Updated Medication List Medication Instructions Recorded Confirmed Type Multi Vitamin 1 tab PO QAM ##0 10/22/09 08/15/24 History acetaminophen 500 mg tablet 1,000 mg (2 x 500 mg) PO TID 30 08/17/24 Rx (Tylenol Extra Strength) days #180 tabs cyclobenzaprine 10 mg tablet 10 mg PO TID PRN muscle spasm #30 08/17/24 Rx tabs diclofenac sodium 75 mg 75 mg PO BID PRN Pain #20 tabs 08/17/24 Rx tablet,delayed release docusate sodium 100 mg capsule 100 mg PO BID #30 caps 08/17/24 Rx oxycodone 5 mg tablet 5 mg PO Q4H PRN pain #15 tabs 08/17/24 Rx Hospital Stay Data Consultations 08/15/24 12:04 Consult Orthopedic Spine Surgery Routine Diagnostic Imagining Performed 08/15/24 10:38 CT lumbar spine wo con Stat Reviewed imaging, laboratory and diagnostic studies. Pertinent findings as below. As noted on H&P Pending Results Patient Have Any Pending Studies at Discharge: No Discharge Instructions Given to Patient (Per Discharging Provider) Activity instructions as outlined below by Dr. Pedraza Follow-up with Dr. Pedraza for follow-up x-rays as coordinated through his office. Total Time Total Time Spent Total Time Spent (In Minutes): 25
== END 2024-08-17 14:00 | disposition home or self-care (01) | DRG 552 ==
LOC: ED 10:23 → EDINP 12:07 → SUATTDRO 12:07 → 3E 14:54